=== PATIENT | female | born 1985 | race Caucasian/White ===

== ENCOUNTER 2023-07-28 11:11 | Day surgery (SDC) | payer BC ==
[2023-07-28] MEDS ORDERED: Sodium Chloride 0.9% 10 ML Syringe FLUSH PRN (11:15)
[2023-07-28] MEDS: Lactated Ringers 1,000 ML IV SCH (11:53)
[2023-07-28] MEDS ORDERED: Propofol 200 MG/20 ML SDV ONE ×2 (14:25→15:06)
[2023-07-28] MEDS ORDERED: Midazolam 1 MG/ML 2 ML SDV ONE (14:26)
[2023-07-28] MEDS ORDERED: Lidocaine 2% 5 ML SDV ONE ×2 (14:26)
== END 2023-07-28 15:21 | disposition home or self-care (01) ==
LOC: LL.SDS 11:11
PROVIDERS: ATTEND Surgery
DX: K31.7 Polyp of stomach and duodenum (principal); R13.10 Dysphagia, unspecified; E07.9 Disorder of thyroid, unspecified; Z90.89 Acquired absence of other organs; Z79.890 Hormone replacement therapy; Z79.899 Other long term (current) drug therapy
CPT/HCPCS: 00731; 43239; J2250; J2704; J7120; J3490

== ENCOUNTER 2024-07-26 10:36 | Day surgery (SDC) | payer BC ==
[~2024-07-26 10:36] MED LIST: Midazolam 1 MG/ML 2 ML SDV ONE; Propofol 200 MG/20 ML SDV ONE
[2024-07-26] MEDS ORDERED: Sodium Chloride 0.9% 10 ML Syringe FLUSH PRN (10:45)
[2024-07-26] MEDS: Lactated Ringers 1,000 ML IV SCH (11:00)
[2024-07-26] MEDS ORDERED: Midazolam 1 MG/ML 2 ML SDV ONE (11:47)
[2024-07-26] MEDS ORDERED: Lidocaine 2% 5 ML SDV ONE (11:50)
[2024-07-26] MEDS ORDERED: Glycopyrrolate 0.2 MG/ML SDV IVPUSH ONE (11:50)
[2024-07-26 13:50] VITALS: BP 124/85; PULSE 63
== END 2024-07-26 13:09 | disposition home or self-care (01) ==
LOC: LL.SDS 10:36
PROVIDERS: ATTEND Surgery
DX: K31.7 Polyp of stomach and duodenum (principal); F41.9 Anxiety disorder, unspecified
CPT/HCPCS: 00813; J1596; J2250; J2704; J3490; J7120